=== PATIENT | male | born 1990 | race Caucasian/White ===

== ENCOUNTER 2017-08-23 17:46 | Inpatient (IN) | payer SELFPAY ==
[2017-08-23 18:48] LABS: Anion Gap 15 mmol/L (10-20); BUN (Urea Nitrogen) 14 mg/dL (8.9-20.6); Calc. Creatinine Clearance 0 mL/min (70-130); Calcium 9.7 mg/dL (7.8-10.44); Carbon Dioxide 28 mmol/L (22-29); Chloride 101 mmol/L (98-107); Estimated GFR-MDRD 82
--- NOTE | 2017-08-23 18:48 | RAD ---
RIGHT FOOT THREE VIEWS 08/23/17 HISTORY: Right foot injury. Stepped on nail. FINDINGS: Lisfranc joint alignment is anatomic. The foot is rotated on the lateral view. Small pocket of gas ov erlies the plantar surface at the lateral aspect of the foot. No metallic foreign bodies are apparent . IMPRESSION: Soft tissue swelling and small pocket of gas at the plantar surface of the forefoot. No retained meta llic foreign bodies are apparent. POS: SUE
[2017-08-23 18:50] LABS: #Basophils 0.1 thou/uL (0.0-0.2); #Eosinphils 0.1 thou/uL (0.0-0.7); #Lymphocytes 1.5 thou/uL (1.20-3.40); #Monocytes 0.9 thou/uL (0.11-0.59); #Neutrophils 7.7 thou/uL (1.40-6.50); %Basophils 0.7 % (0.0-1.0); %Eosinophils 1.1 % (0.0-10.0); %Lymphocytes 14.4 % (21.0-51.0); %Monocytes 8.8 % (0.0-10.0); Hematocrit 42.1 % (42.0-52.0); Mean Platelet Volume 8.3 fL (7.4-10.4); Red Blood Cell (RBC) Count 5.05 mill/uL (4.70-6.10); White Blood Cell (WBC) Count 10.3 thou/uL (4.8-10.8)
[2017-08-23] MEDS ORDERED: Adacel (T-DAP) 0.5 ML VIAL ONE (18:50)
[2017-08-23] MEDS ORDERED: Piperacillin/Tazobactam 4.5 GM VIAL ONE (19:09)
[2017-08-23] MEDS ORDERED: Sodium Chloride 0.9% 100 ML ONE (20:49)
[2017-08-23] MEDS ORDERED: HYDROcodone/Acetaminophen 5/325 mg Tablet PO PRN ×2 (21:33)
[2017-08-23] MEDS ORDERED: Acetaminophen 325 MG TAB PO PRN (22:56)
[2017-08-23] MEDS ORDERED: Mag-Al 1200 mg/1200 mg/30 ML UDCUP PO PRN (22:56)
[2017-08-23] MEDS ORDERED: Milk Of Magnesia 30 ML UDCUP PO PRN (22:56)
[2017-08-23] MEDS ORDERED: Senokot 8.6 MG TAB PO PRN (22:56)
[2017-08-23] MEDS ORDERED: Ondansetron HCl/PF 4 MG/2 ML Vial IVP PRN (22:56)
[2017-08-23] MEDS ORDERED: HYDROcodone/Acetaminophen 10/325 mg Tablet PO PRN (22:56)
[2017-08-23] MEDS ORDERED: Zolpidem Tartrate 5 MG TAB PO PRN (22:56)
[2017-08-23] MEDS ORDERED: Ondansetron ODT 4 MG TAB PO PRN (22:56)
[2017-08-23] MEDS ORDERED: Loperamide HCl 2 MG CAP PO PRN (22:56)
--- NOTE | 2017-08-23 23:39 | PDOC.EVN ---
Event Note - Event Note Event Note: Patient seen and examined. dictation note to follow
[2017-08-23] MEDS ORDERED: Piperacillin/Tazobactam 4.5 GM in Sodium Chloride 0.9% 100 ML IVPB SCH (23:59)
[2017-08-23] MEDS ORDERED: Piperacillin/Tazobactam 3.375 GM in Sodium Chloride 0.9% 100 ML IVPB SCH (23:59)
[2017-08-24 01:35] VITALS: BMI 28.4
[2017-08-24] MEDS ORDERED: Morphine 4 MG/ML VIAL SLOW IVP PRN (02:04)
[2017-08-24] MEDS: Piperacillin/Tazobactam 4.5 GM in Sodium Chloride 0.9% 100 ML IVPB SCH ×4 (02:20→20:46)
[2017-08-24] MEDS: Vancomycin HCl 1.25 GM in Sodium Chloride 0.9% 250 ML 250 ML IVPB SCH ×3 (03:30→21:26)
--- NOTE | 2017-08-24 03:41 | HP ---
DATE OF SERVICE: 08/23/2017 PRIMARY CARE PHYSICIAN: [facility] call admission. REASON FOR ADMISSION: Right foot cellulitis. HISTORY OF PRESENT ILLNESS: A 27-year-old male with no significant medical history, who came to [facility] for complaint of right foot pain. The patient reports that about 3 weeks ago, he stepped on nail and he punctured plantar aspect of the right foot, subsequently he again step ped down on a nail about 2 weeks ago and punctured his right mid distal plantar foot. Subsequently, he was cleaning that wound by himself and he felt improvement. The patient was wearing rubber sole b oots at that time. Today when he went to his home and he was showering, he noticed that his right fo ot is swollen and erythematous and tender, and his erythema and swelling was gotten worse and that is why he went to [facility]. He denies any fever or chills. He does report throbbing pain. He denies any nausea, vomiting, or diarrhea. He denies any insect bite. At [facility], the patient had foot x-ray which showed soft tissue edema with gas pocket. The patient was given antibiotic therapy and subsequently he was admitted to medical floor. REVIEW OF SYSTEMS: The following complete review of systems was negative, unless otherwise mentioned in the HPI or below: Constitutional: Weight loss or gain, ability to conduct usual activities. Skin: Rash, itching. Eyes: Double vision, pain. ENT/Mouth: Nose bleeding, neck stiffness, pain, tenderness. Cardiovascular: Palpitations, dyspnea on exertion, orthopnea. Respiratory: Shortness of breath, wheezing, cough, hemoptysis, fever or night sweats. Gastrointestinal: Poor appetite, abdominal pain, heartburn, nausea, vomiting, constipation, or diarr hea. Genitourinary: Urgency, frequency, dysuria, nocturia. Musculoskeletal: Pain, swelling. Neurologic/Psychiatric: Anxiety, depression. Allergy/Immunologic: Skin rash, bleeding tendency. Please see my HPI for pertinent positives and negatives. All other review of systems reviewed and ne gative except as mentioned in the HPI. PAST MEDICAL HISTORY: Reviewed and negative. PAST SURGICAL HISTORY: Left mandible surgery, left hand surgery. PAST PSYCHIATRIC HISTORY: Reviewed and negative. SOCIAL HISTORY: The patient is smoking about 1 pack per day. He denies any alcohol or other illicit drug abuse. FAMILY HISTORY: No strong family history of premature coronary artery disease, stroke, or cancer. ALLERGIES: No known drug allergies. CURRENT HOME MEDICATIONS: The patient is not taking any prescribed or non-prescribed medication. EMERGENCY ROOM COURSE: The patient was given vancomycin, Zosyn, and tetanus toxoid. PHYSICAL EXAMINATION: VITAL SIGNS: On arrival, blood pressure 147/76, pulse 101, respiratory rate 18, temperature 98.4, sa turation 99% on room air, weight 95.2 kg. GENERAL: The patient is currently alert, awake, no obvious acute distress. HEAD: Normocephalic, atraumatic. EYES: Pupils are round and reactive to light. Extraocular muscles are intact. ENT: Oropharynx within normal limits. Moist mucous membranes. No oral lesions. No pharyngeal eryt eduardo, no exudate. NECK: Supple. Range of motion is normal. No meningeal signs of irritation. LUNGS: Clear to auscultation without any rhonchi or rales. CARDIAC: S1 and S2 regular without any murmur. ABDOMEN: Soft, bowel sounds present, nontender, nondistended. No organomegaly, no mass, no suprapub ic tenderness. BACK: Unremarkable, no CVA tenderness. EXTREMITIES: Upper extremity: Passive movement of all joints are normal. Lower extremities: Right foot is swollen, erythematous, and tender especially on the medial aspect. The patient also has two old appearing puncture sites on distal plantar right foot, one at the ball of the foot and another a t the mid distal plantar foot. There is no fluctuance. No drainage. No ulceration or necrotic skin . Entire right foot is erythematous, warm, and tender. NEUROLOGIC: Nonfocal examination. The patient moves all 4 limbs. Plantar bilateral flexor. PSYCHIATRIC: Normal affect. SIGNIFICANT LABS: X-ray of foot showing soft tissue swelling and small pocket of gas at the plantar aspect of the forefoot. No retained metallic foreign bodies are present. CBC: WBC 10.3, hemoglobin 14.8, platelets 207. Sodium 140, potassium 4.0, chloride 101, carbon diox clay 28, BUN 14, creatinine 1.07, glucose 95, calcium 9.7. ASSESSMENT AND PLAN: 1. Right foot cellulitis with puncture wound. The patient has history of puncture wound about 2-3 w eeks ago and subsequently the patient has right foot cellulitis. At this point, the patient has a ra pid worsening of swelling and erythema and that is why we will keep this patient in hospital. We ethan l give him broad spectrum antibiotic therapy with vancomycin and Zosyn. Vancomycin dose will be adju sted by pharmacy. We will also consult ID team. We will monitor clinical response. We will control his pain with [place] and morphine p.r.n. basis. 2. Tobacco abuse disorder. Smoking cessation counseling given. We will offer nicotine patch if nee ded. 3. Deep venous thrombosis prophylaxis. Lovenox 40 mg subcutaneously daily. 4. Gastrointestinal prophylaxis. Pepcid 20 mg p.o. b.i.d. 5. Code status: The patient is FULL CODE. Disposition plan based on clinical course. We are expecting the patient's stay in hospital more than 2 midnights. Plan of care discussed with the patient in detail.
[2017-08-24 04:46] LABS: #Eosinphils 0.2 thou/uL (0.0-0.7); #Lymphocytes 1.5 thou/uL (1.20-3.40); #Monocytes 0.8 thou/uL (0.11-0.59); #Neutrophils 5.4 thou/uL (1.40-6.50); %Basophils 0.1 % (0.0-1.0); %Eosinophils 2.1 % (0.0-10.0); %Lymphocytes 18.6 % (21.0-51.0); %Monocytes 10.8 % (0.0-10.0); Mean Platelet Volume 8.9 fL (7.4-10.4); Red Blood Cell (RBC) Count 4.62 mill/uL (4.70-6.10); White Blood Cell (WBC) Count 7.8 thou/uL (4.8-10.8)
[2017-08-24 04:50] LABS: Anion Gap 10 mmol/L (10-20); BUN (Urea Nitrogen) 12 mg/dL (8.9-20.6); Calc. Creatinine Clearance 151 mL/min (70-130); Calcium 8.5 mg/dL (7.8-10.44); Carbon Dioxide 28 mmol/L (22-29); Chloride 105 mmol/L (98-107); Estimated GFR-MDRD Greater than 90
[2017-08-24] MEDS ORDERED: FLU VACC QS2017-18 36 mo. & older 0.5 ML SYRINGE IM ONE (09:00)
[2017-08-24] MEDS: Enoxaparin Sodium 40 MG/0.4 ML SYRINGE SC SCH (09:34)
[2017-08-24] MEDS: Saccharomyces boulardii 250 MG CAP PO SCH (09:35)
[2017-08-24] MEDS: Famotidine 20 MG TAB PO SCH ×2 (09:35→20:50)
--- NOTE | 2017-08-24 12:23 | CON ---
DATE OF CONSULTATION: 08/24/2017 REASON FOR CONSULTATION: Right foot inflammatory process. 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 This occurred twice within the space of 2 weeks and then eventuall y developed inflammatory changes. He was admitted and x-ray showed a small pocket of gas at the plan tar surface. Patient has been treated with broad spectrum antimicrobial coverage including Zosyn and vancomycin with improvement in the inflammatory process. He still has moderate pain when he bears w eight on the plantar surface. No headaches, visual symptoms, sore throat, odynophagia, dysphagia, no cough or sputum production or chest pain. No abdominal pain, diarrhea or genitourinary symptoms. N o neurological symptoms. PAST MEDICAL HISTORY: Negative other than this and left mandibular surgery and left hand surgery in the past. SOCIAL HISTORY: Current smoker. No illicit drug use or alcoholic beverage use. FAMILY HISTORY: Noncontributory. ALLERGIES: None. CURRENT MEDICATIONS: Tylenol, Hickman, Maalox, Lovenox, Pepcid, Imodium, morphine, Zofran, Zosyn, and vancomycin. FAMILY HISTORY: Noncontributory. PHYSICAL EXAMINATION: VITAL SIGNS: Essentially normal. SKIN: Shows the improvement in the area of erythema, which had been noticed in the dorsal aspect of the mid foot when the initial fluid was taken yesterday. There is a small area where the nail entere d the plantar surface, right at the mid foot plantar aspect, but no evidence of purulence or necrosis or discoloration at this time. No other skin lesions. Peripheral IV access. No Amezcua catheter. N o lymphadenopathy. HEENT: Ocular movements are conjugate. Sclerae white. Pupils are equal. Conjunctivae normal. Austyn al passages patent. Oral cavity normal. Numerous teeth in place with normal gums. NECK: Supple, no jugular venous distention or thyromegaly. LUNGS: With symmetric clear breath sounds. HEART: S1, S2, regular rate. ABDOMEN: Soft, not distended or tender. No ascites. No bladder distention. EXTREMITIES: No joint inflammatory activity outside the area of involvement. Pulses are 2+ in dorsa lis pedis. Moves all extremities equally. NEUROLOGIC: Cognitive function appears to be normal. LABORATORY DATA: CRP 2.69. Other chemistries values normal. White cell count 10.3 with some elevat ion, the percentage of neutrophils is 75. Microbiology with 2 sets of blood cultures thus far negati ve. ASSESSMENT: Puncture injury through boot, right foot with inflammatory process. DISCUSSION: Differential diagnosis includes cellulitis versus abscess versus osteomyelitis/tenosynov itis. We will order an MRI with contrast and then decide what regimen for discharge planning will be . If there is evidence of osteomyelitis, then PICC line placement and protracted IV antimicrobial th erapy, otherwise hopefully we can switch him to oral clindamycin plus ciprofloxacin for discharge garfield nning. There would be still a risk of recrudescence of inflammatory process since we do not have an organism isolated and probably will not have one and therefore it increases the uncertainty of the an timicrobial choice for discharge planning.
--- NOTE | 2017-08-24 16:13 | PDOC.PN ---
- Subjective Encounter Start Date: 08/24/17 Encounter Start Time: 16:10 Mr. Scott was seen in follow-up to cellulitis of the Right foot. He says the swelling has gone down quite a bit, and the soreness as well. - Objective Resuscitation Status: Resuscitation Status FULL:Full Resuscitation MAR Reviewed: Yes Vital Signs & Weight: Vital Signs (12 hours) Temp Pulse Resp BP Pulse Ox 08/24/17 11:32 97.9 F 65 16 106/64 100 08/24/17 08:00 97.9 F 67 16 102/68 97 Weight Weight 210 lb Result Diagrams: 08/24/17 04:00 08/24/17 04:00 Phys Exam - Physical Examination HEENT: PERRLA Respiratory: no wheezing, no rales, no rhonchi, clear to auscultation bilateral Cardiovascular: RRR, no significant murmur Gastrointestinal: soft, non-tender, positive bowel sounds Musculoskeletal: pulses present, edema present + edema on the foot, and moderate erythema on the foot, and ankle Dx/Plan (1) Cellulitis of right foot Code(s): L03.115 - CELLULITIS OF RIGHT LOWER LIMB Status: Acute (2) Puncture wound of right foot Code(s): S91.331A - PUNCTURE WOUND WITHOUT FOREIGN BODY, RIGHT FOOT, INIT ENCNTR Status: Acute (3) Tobacco abuse Code(s): Z72.0 - TOBACCO USE Status: Acute - Plan * Cellulitis od the right foot- continue Vancomycin and Zosyn * MRI is pending to rule out Osteomyelitis * Tobacco abuse- discussed the need to quit
[2017-08-24 19:34] LABS: Vancomycin, Trough 13.1 ug/mL
[2017-08-25] MEDS: Piperacillin/Tazobactam 4.5 GM in Sodium Chloride 0.9% 100 ML IVPB SCH ×2 (02:49→08:08)
[2017-08-25] MEDS: Vancomycin HCl 1.25 GM in Sodium Chloride 0.9% 250 ML 250 ML IVPB SCH ×2 (03:33→12:35)
[2017-08-25] MEDS: Saccharomyces boulardii 250 MG CAP PO SCH (08:08)
[2017-08-25] MEDS: Famotidine 20 MG TAB PO SCH (08:08)
[2017-08-25] MEDS: Enoxaparin Sodium 40 MG/0.4 ML SYRINGE SC SCH (08:08)
--- NOTE | 2017-08-25 11:43 | PDOC.PN ---
- Subjective Encounter Start Date: 08/25/17 Encounter Start Time: 11:42 Mr. Scott was seen today in follow-up of a foot infection. He is feeling better and wants to go home. 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 - Objective Resuscitation Status: Resuscitation Status FULL:Full Resuscitation MAR Reviewed: Yes Vital Signs & Weight: Vital Signs (12 hours) Temp Pulse Resp BP Pulse Ox 08/25/17 08:00 97.3 F L 84 16 08/25/17 07:30 97.3 F L 84 16 113/69 99 Weight Weight 210 lb I&O: 08/24/17 08/25/17 08/26/17 06:59 06:59 06:59 Intake Total 1850 Balance 1850 Result Diagrams: 08/24/17 04:00 08/24/17 04:00 Phys Exam - Physical Examination HEENT: PERRLA Respiratory: no wheezing, no rales, no rhonchi, clear to auscultation bilateral Cardiovascular: RRR, no significant murmur Gastrointestinal: soft, non-tender, positive bowel sounds Musculoskeletal: no edema Dx/Plan (1) Cellulitis of right foot Code(s): L03.115 - CELLULITIS OF RIGHT LOWER LIMB Status: Acute (2) Puncture wound of right foot Code(s): S91.331A - PUNCTURE WOUND WITHOUT FOREIGN BODY, RIGHT FOOT, INIT ENCNTR Status: Acute (3) Tobacco abuse Code(s): Z72.0 - TOBACCO USE Status: Acute - Plan * Cellulitis- improving- MRI was completed, but the results are not yet available * Will discharge home today and he will be discharged home on Cipro and Minocin for 2 weeks, and follow-up with Dr. Castellanos as an outpatient .
--- NOTE | 2017-08-25 12:16 | MRI ---
MRI OF THE RIGHT FOREFOOT WITH AND WITHOUT IV CONTRAST: Date: 08/25/17 PROVIDED CLINICAL HISTORY: Cellulitis, status post puncture wound. FINDINGS: There is a focal area of signal alteration involving the subcutaneous adipose layer at the plantar as pect of the foot subjacent to the second and third metatarsals. There is no rim enhancing fluid colle ction to suggest drainable abscess. There is no significant regional tenosynovial fluid. Regional mar row signal appears normal. There is noncircumscribed fascial fluid seen along the plantar surface of the flexor digitorum musculature. No regional joint effusion is evident. Alignment appears anatomic. IMPRESSION: Findings compatible with provided clinical history of cellulitis at the plantar aspect of the forefoo t without evidence for a drainable soft tissue fluid collection or evidence for osteomyelitis. POS: SUE
[2017-08-25 12:41] VITALS: BP 124/83; TEMP 98
--- NOTE | 2017-08-25 13:57 | DIS ---
DATE OF ADMISSION: 08/23/2017 DATE OF DISCHARGE: 08/25/2017 PRIMARY CARE PHYSICIAN: None. DISCHARGE DISPOSITION: Home. PRIMARY DISCHARGE DIAGNOSES: 1. Cellulitis of the foot. 2. Tobacco use. DISCHARGE MEDICATIONS: Include Minocin 100 mg twice a day for 2 weeks as well as ciprofloxacin 500 m g twice a day for 2 weeks. CODE STATUS: FULL CODE. ALLERGIES: No known drug allergies. PROCEDURES DONE DURING ADMISSION: The patient had an MRI of the lower extremity which was pending at the time of discharge. HOSPITAL COURSE: Mr. Scott is a pleasant 27-year-old gentleman who had stepped on a nail while at [facility] and noticed a puncture in the right mid distal foot. He had been trying to clean it himself in e outpatient setting, but he noticed the onset of swelling in the right foot, which was extending up into the calf. He got worried and for this reason, he came to the hospital for evaluation. He was s tarted on broad spectrum IV antibiotics with improvement in his symptoms. He had received a tetanus shot according to the patient in the ER. He was seen by Infectious Disease and our Infectious Dise e specialist and it was recommended that he have an MRI to rule out osteomyelitis, this was done. e plan was to then decide based on the MRI results whether or not the patient will need continued IV antibiotics exterminator helper. 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 For this reason, he wanted to leave the hospital. This was discussed with Dr Zachary Castellanos over the phone and even though this was not the ideal circumstance, he recommended Minocin an d Cipro for 2 weeks and then to follow up with him in his office with the MRI results at which time e would determine what the next step would be regarding his treatment.
== END 2017-08-25 12:53 | disposition home or self-care (01) | DRG 605 ==
LOC: SCSER 17:46 → T4-B 19:00 → SCSER 20:41
PROVIDERS: ADMIT Family Medicine; ATTEND Family Medicine
DX: S91.331A Puncture wound without foreign body, right foot, initial encounter (principal); L03.115 Cellulitis of right lower limb; W22.8XXA Striking against or struck by other objects, initial encounter; F17.210 Nicotine dependence, cigarettes, uncomplicated; Z23 Encounter for immunization
CPT/HCPCS: 36415; 80048; 80202; 85025; 86140; 87040; 90471; 90682; 90715; 90732; A4216; G0008; G0009; J1650; J2543; J3370; J7050; Q2036